=== PATIENT | female | born 1975 ===

== ENCOUNTER 2024-05-17 01:10 | Outpatient (CLI) | payer BC, SELFPAY ==
--- NOTE | 2024-05-17 12:15 | DI.MRI_ITS ---
Exam(s) MR BRAIN WO EXAM: MR BRAIN WO CLINICAL HISTORY: Abnormal CT of brain, intracranial mass, R90.89, R90.0. TECHNIQUE: Multiplanar multisequence MRI of the brain was performed. CONTRAST MATERIAL: Noncontrast COMPARISON: No exams were available for comparison. The report from a dental CT from January 30 is available. FINDINGS: VENTRICLES AND EXTRA AXIAL SPACES: Normal in size and morphology for the patient's age. HEMORRHAGE: None. CEREBRAL PARENCHYMA: No focus of restricted diffusion to suggest acute infarct. No space-occupying le mary identified. BRAINSTEM/CEREBELLUM: Normal. CALVARIUM: Normal. VISUALIZED PARANASAL SINUSES/MASTOIDS: Air-fluid level and mucosal thickening in the left maxillary s inus. The remaining sinuses are clear. No abnormality is visible lateral to the left sphenoid sinus . Orbits: Unremarkable. Pituitary: Not enlarged. Vasculature: Normal flow voids. IMPRESSION: Unremarkable MRI of the brain. No abnormality is demonstrated adjacent to the left sphenoid sinus. T he prior examinations are not available for comparison. DATA REPOSITORY:
== END 2024-05-17 01:30 ==
PROVIDERS: PCP Physician Assistant Medical; Visit Provider Registered Nurse Maternal Newborn
DX: R90.89 Other abnormal findings on diagnostic imaging of central nervous system (principal); R90.0 Intracranial space-occupying lesion found on diagnostic imaging of central nervous system
CPT/HCPCS: 70551